=== PATIENT | male | born 1955 | race Caucasian/White ===

== ENCOUNTER 2023-11-03 14:16 | Outpatient (CLI) | payer MEDICARE | END 2023-11-03 14:17 | disposition home or self-care (01) | LOC: CSHULT 14:16 | PROVIDERS: ATTEND Family Medicine | DX: E66.01 Morbid (severe) obesity due to excess calories (principal); Z68.44 Body mass index [BMI] 60.0-69.9, adult; I12.9 Hypertensive chronic kidney disease with stage 1 through stage 4 chronic kidney disease, or unspecified chronic kidney disease; N18.32 Chronic kidney disease, stage 3b; I07.2 Rheumatic tricuspid stenosis and insufficiency; J44.9 Chronic obstructive pulmonary disease, unspecified | CPT/HCPCS: 93306; 94060; 94729; 94760 ==